=== PATIENT | female | born 1975 | race Caucasian/White ===

== ENCOUNTER → 2023-05-18 16:32 | Outpatient (REF) | payer BC, SELFPAY | LOC: HWRAD 16:32 | PROVIDERS: ATTENDING PHYSICIAN Nurse Practitioner; FAMILY PHYSICIAN Nurse Practitioner Adult Health | DX: J18.0 Bronchopneumonia, unspecified organism (principal) | CPT/HCPCS: 71046 ==

== ENCOUNTER → 2023-08-17 12:17 | Outpatient (REF) | payer BC, SELFPAY | LOC: RAD 12:17 | PROVIDERS: ATTENDING PHYSICIAN Nurse Practitioner Adult Health | DX: R10.32 Left lower quadrant pain (principal); Z90.710 Acquired absence of both cervix and uterus; N30.10 Interstitial cystitis (chronic) without hematuria | CPT/HCPCS: 74177; Q9967 ==

== ENCOUNTER 2025-05-07 19:04 | Emergency (ER) | payer OTHER, SELFPAY ==
[2025-05-07 19:12] VITALS: BP 120/70
[2025-05-07 23:26] VITALS: BMI 32.3
[2025-05-07] MEDS: DECADRON 10 MG PO (23:28)
[2025-05-07] MEDS: DUONEB 3 ML INH (23:28)
[2025-05-07 23:47] VITALS: BP 128/77
[2025-05-08] MEDS: TYLENOL 1000 MG PO (00:07)
[2025-05-08] MEDS: ZITHROMAX 500 MG PO (00:08)
--- NOTE | 2025-05-08 00:35 | ED.GENMED ---
History of Present Illness
General
Chief Complaint: Cold/Flu/URI Symptoms
Source: patient
Exam Limitations: none
Time Seen by Provider: 05/07/25 22:22
Nursing documentation reviewed up to this point in time: agreed with
History of Present Illness
History of Present Illness:
Patient to the emergency department with complaint of worsening cough, fever, body aches. Symptoms started 2 days ago. She was seen at urgent care today. She states that she tested negative for COVID flu and RSV. She was then advised to come to
the emergency department for further evaluation. Temp on arrival to the ED is 98.8 she is taking NSAIDs for fever control. Pulse ox 99% on room air
Phy Exam
General Physical Exam
General Presentation: mild distress
General Skin: warm and dry
General Habitus: normal
General Mental: alert
Cardiovascular Exam
Cardiovascular Exam: regular rate/rhythm and no edema
Pulmonary Exam
Pulmonary Exam: lungs clear, no respiratory distress and chest non tender
Oxygen Status: room air (99%)
Cough: coarse cough
Musculoskeletal Exam
Musculoskeletal Exam: full ROM and neuro vasc intact
Skin Exam
Skin Exam: normal color, warm/dry and no rash
Psychiatric Exam
Psychiatric Exam: normal mood/affect
Course
Orders/Labs/Results
Orders:
Orders
05/07/25 19:17
CR Chest - 2 Views Urgent
Comment:
Reason For Exam: cough, SOB
05/07/25 22:47
Dexamethasone Pf [Decadron] 10 mg PO NOW STA
05/07/25 22:48
Ipratropium/Albuterol Sulfate [Duoneb] 3 ml INH R NOW STA
05/07/25 23:58
Acetaminophen [Tylenol] 1,000 mg PO NOW STA
Acetaminophen [Tylenol] 650 mg .ROUTE .STK-MED ONE
Azithromycin [Zithromax] 500 mg PO NOW STA
Vital Signs
Initial and Last Documented VS:
Initial Vital Signs
Temp Pulse Resp BP Pulse Ox
98.8 F 93 20 120/70 99
05/07/25 19:12 05/07/25 19:12 05/07/25 19:12 05/07/25 19:12 05/07/25 19:12
Last Documented Vital Signs
Temp Pulse Resp BP Pulse Ox
99.0 F 82 18 128/77 99
05/07/25 23:47 05/07/25 23:47 05/07/25 23:47 05/07/25 23:47 05/08/25 00:37
*Pulse Oximetry
SaO2: 99
Oxygen Mode of Delivery: Room air
Patient hypoxic: no
*Critical Care Note
Total Time (30-74mins, 75-104mins- exclusive of procedures): Not Applicable
Update Note
Update Note:
Patient to emergency department with complaint of fever/chills body aches shortness of breath and cough. Symptoms started approximately 2 days ago. She was evaluated urgent care and then advised to come to the emergency department. On arrival to
ED she is awake and alert. Vital signs are stable and she is afebrile. Flu COVID and RSV were checked at urgent care all were negative. Chest x-ray completed today, NAD. Pulse ox is 98% on room air. She has a coarse cough. She was given
Decadron and DuoNeb while in ED with some improvement. Will treat for acute bronchitis. Given Rx for Z-Niko, albuterol inhaler. She will be discharged home, close follow-up with PCP. She was given instructions on signs and symptoms to return to
the emergency department she is agreeable to this plan.
ED Attending Note
-
Portions of this chart may have been created with voice recognition software.� Occasional wrong word or��sound alike� substitutions may have occurred due to the inherent limitations of voice recognition software.
Discharge Plan
Departure
Patient Disposition: Home (Routine Discharge)
Date of Disposition: 05/07/25
Time of Disposition: 23:58
Patient with high blood pressure during this ER visit?: No
Condition: Good
Covid-19: Not Applicable
Discharge Problem:
Acute bronchitis
Instructions: Acute Bronchitis, Adult (DC)
Prescriptions:
New
azithromycin 250 mg tablet
250 mg PO DAILY Qty: 4 0RF
albuterol sulfate [Ventolin HFA] 90 mcg/actuation HFA aerosol inhaler
2 puff inhalation Q6H PRN (Reason: shortness of breath or wheezing) Qty: 8.5 0RF
Referrals:
Anila Pringle CRNP [Family Provider, General] - Follow up in 2-3 days
Stand Alone Forms: Return to Work
Activity Restrictions/Additional Instructions:
Return to the emergency department for any changes in/worsening of your symptoms.
Interventions
Interventions:
*General Assessment Last Done: 05/07/25 19:16
*Neglect/Abuse Screening Last Done: 05/07/25 19:16
*ED COVID-19 Vaccine History Last Done: 05/07/25 19:16
*ED Influenza Vaccine History Last Done: 05/07/25 19:16
[facility] Fall Risk Assessment Tool Last Done: 05/07/25 23:20
*Risk Screen - Suicide (C-SSRS) Last Done: 05/07/25 19:16
*Nursing Disposition Last Done: 05/08/25 00:17
ED- Pulmonary Assessment Last Done: 05/07/25 23:53
Discharge Date and Time
Discharge Date/Time: 05/08/25 00:18
Print Language: MALAWIAN
== END 2025-05-08 00:18 | disposition home or self-care (01) ==
LOC: EMR 19:04
PROVIDERS: EMERGENCY PHYSICIAN Emergency Medicine; FAMILY PHYSICIAN Nurse Practitioner Adult Health
DX: J20.9 Acute bronchitis, unspecified (principal); Z88.1 Allergy status to other antibiotic agents
CPT/HCPCS: 99283; 94640; 71046